=== PATIENT | male | born 1995 | race Caucasian/White ===

== ENCOUNTER 2016-08-10 09:39 | Emergency (ER) | payer OTHER ==
[2016-08-10 09:55] VITALS: BP 119/68; PULSE 79; RESP 12; TEMP 98.1; O2SAT 96
--- NOTE | 2016-08-10 10:06 | UCPHY ---
H & P Patient Type: Established Chief Complaint Nursing Narrative: both eyes with crusty exudate since yesterday. some redness, no swelling. HPI/ROS: CHIEF COMPLAINT: Eye discharge, nasal congestion, sore throat. HISTORY OF PRESENT ILLNESS: The patient is a 20-year-old male who presents with bilateral eye discharge, nasal congestion, and sore throat since yesterday. He denies visual disturbances. He does not have a foreign body sensation. He does not wear vision correction. No fever, vomiting, diarrhea, abdominal pain, or other complaints. He admits recent sick contact. REVIEW OF SYSTEMS: A ten point review of systems was performed and is negative with the exception of the items mentioned in the HPI. - Personal History Tetanus Vaccine Date: 2012 - Medical/Surgical History Hx Asthma: No Hx Chronic Respiratory Disease: No Hx Diabetes: No Hx Cardiac Disease: No Hx Renal Disease: No Hx Cirrhosis: No Hx Alcoholism: No Hx HIV/AIDS: No Hx Splenectomy or Spleen Trauma: No Other PMH: ADHD - Family History Significant Family History: No pertinent family hx - Social History Smoking Status: Never smoked Additional Social History: Nonsmoker. Employed by [employer]. - Physical Exam Exam: General Appearance: Alert. Vital signs reviewed. Focused exam was performed. Eyes:Visual Acuity: noted from Nurse's notes. Pupils:equal round and reactive to light, EOMI Lids: no edema or swelling, crusty discharge on right eyelash and lids. Skin: no proptosis, no periorbital erythema or swelling, no vesicles Conjunctivae: not injected, no discharge Cornea: no fluorescein exam ENT, Mouth: Mucous membranes are moist, no oropharyngeal erythema or edema. Neck: Cervical lymphadenopathy. Supple. Respiratory: Lungs are clear to auscultation; no wheezes, rales, or rhonchi. Cardiovascular: Regular rate and rhythm; no murmur, rub, or gallop. Gastrointestinal: Abdomen is soft and nontender, no masses or organomegaly, bowel sounds Neurological: Alert and oriented. Moving all four extremities easily and equally. Psychiatric: Normal affect. Constitutional: Initial Vital Signs Temperature (C) 36.7 C 08/10/16 09:54 Heart Rate 79 08/10/16 09:54 Respiratory Rate 12 08/10/16 09:54 Blood Pressure 119/68 08/10/16 09:54 O2 Sat (%) 96 08/10/16 09:54 O2 Delivery Mode Room Air,Nasal Cannula Allergies/Adverse Reactions: No Known Allergies Allergy (Verified 08/10/16 09:53) Home Medications: Medication Instructions Recorded Adderall 10 MG (RX) 08/25/15 Sulfacetamide 10% [Bleph-10 10%] 1 drops EACHEYE Q4H #1 opht.btl 08/10/16 Medical Decision Making ED Course/Re-evaluation: 20-year-old male presents with sore throat, nasal congestion, and mild eye discharge since yesterday morning. He does not have associated fever, vomiting, or other complaints. On exam he has a small amount of crusty discharge on his right eyelash and lids but his conjunctiva are not injected. Visual acuity was normal. I do not think this represents a conjunctivitis yet, but he does have recent sick contact with conjunctivitis. I will prescribe an antibiotic eyedrop that he can use if he continues to have eye discharge. He otherwise understands to follow up with his primary care provider. Differential Diagnosis: DDX includes but is not limited to bacterial or bacterial conjunctivitis, allergy, iritis, keratitis. Departure - Departure Disposition: Home, Routine, Self-Care Clinical Impression: Upper respiratory infection Qualifiers: URI type: unspecified viral URI Qualified Code(s): J06.9 - Acute upper respiratory infection, unspecified; B97.89 - Other viral agents as the cause of diseases classified elsewhere Condition: Good Instructions: Upper Respiratory Infection (ED), Conjunctivitis (ED) Additional Instructions: Use the antibiotic drops if you develop increased discharge from your eye. Drink plenty of fluids and be sure to get rest. Follow up with your PCP this week for reevaluation. Return for any serious worsening of condition. Referrals: Andrea Zurita MD [Primary Care Provider] - As per Instructions Prescriptions: Sulfacetamide 10% [Bleph-10 10%] 1 drops EACHEYE Q4H #1 opht.btl - PQRS PQRS Measurement: N/A. Report Scribed for: Esther Marroquin Report Scribed by: Surinder Baeza Date of Report: 08/10/16 Time of Report: 10:23 Physician Review and Approval Statement: 08/13/16 06:58 Portions of this chart were entered by a medical records director. I personally performed history, physical exam, MDM. I have reviewed and approve of documentation, as evidenced by my signature.
== END 2016-08-10 10:49 | disposition home or self-care (01) ==
LOC: CED 09:39
DX: J06.9 Acute upper respiratory infection, unspecified (principal); H10.9 Unspecified conjunctivitis
CPT/HCPCS: 99214-PO; G0463-PO

== ENCOUNTER 2016-09-02 17:29 | Emergency (ER) | payer OTHER | END 2016-09-02 17:30 | disposition left against medical advice (07) | LOC: CED 17:29 | DX: Z53.21 Procedure and treatment not carried out due to patient leaving prior to being seen by health care provider (principal) ==